=== PATIENT | male | born 1995 | race African-American/Black ===

== ENCOUNTER 2017-01-16 19:06 | Emergency (ER) | payer BC, OTHER ==
[2017-01-16] MEDS ORDERED: DIPHENHYDRAMINE HCL 50 MG CAPSULE PO ONE (19:58)
--- NOTE | 2017-01-16 19:58 | ER Document Report ---
ED General - General TRAVEL OUTSIDE OF THE [place] 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 Patient states that he developed a headache after washing dishes during the lunch shift. He went home and took Advil and then went back to work for the dinner shift. While working he developed rhinorrhea, sore throat, and nausea. Patient left work early to come to the ED to be evaluated. Patient states that he develops similar symptoms when smelling peanuts. Patient denies any rash, vomiting, or diarrhea. (BLANCA COPELAND) - Related Data Allergies/Adverse Reactions: nut - unspecified Allergy (Verified 01/16/17 19:13) Past Medical History - General Information source: Patient - Social History Smoking Status: Never Smoker Chew tobacco use (# tins/day): No Frequency of alcohol use: None Drug Abuse: None Family History: Reviewed & Not Pertinent Patient has suicidal ideation: No Renal/ Medical History: Denies: Hx Peritoneal Dialysis Surgical Hx: Negative - Immunizations Hx Diphtheria, Pertussis, Tetanus Vaccination: No Review of Systems - Review of Systems Constitutional: No symptoms reported EENT: See HPI, Nose congestion, Nose discharge, Throat pain Cardiovascular: No symptoms reported Respiratory: No symptoms reported Gastrointestinal: See HPI, Nausea. denies: Diarrhea, Vomiting Genitourinary: No symptoms reported Male Genitourinary: No symptoms reported Musculoskeletal: No symptoms reported Skin: No symptoms reported. denies: Rash Hematologic/Lymphatic: No symptoms reported Neurological/Psychological: See HPI, Headaches -: Yes All other systems reviewed and negative Physical Exam - General General appearance: Alert In distress: None - HEENT Head: Normocephalic, Atraumatic Eyes: Normal Extraocular movements intact: Yes Pupils: PERRL Ears: Normal External canal: Normal Tympanic membrane: Bulging - left, Injected - left, Other - clear fluid behind left TM. No: Normal Nasal: Clear rhinorrhea - left nostril. No: Normal - Respiratory Respiratory status: No respiratory distress Breath sounds: Normal - Cardiovascular Rhythm: Regular Heart sounds: Normal auscultation Murmur: No Friction rub: No Gallop: None auscultated - Abdominal Inspection: Normal Bowel sounds: Normal Tenderness: Nontender - Extremities General upper extremity: Normal inspection, Normal ROM General lower extremity: Normal inspection, Normal ROM, Normal weight bearing - Neurological Neuro grossly intact: Yes Cognition: Normal Orientation: AAOx4 Cubero Coma Scale Eye Opening: Spontaneous Jarvis Coma Scale Verbal: Oriented Jarvis Coma Scale Motor: Obeys Commands Cubero Coma Scale Total: 15 Speech: Normal - Psychological Associated symptoms: Normal affect, Normal mood - Skin Skin Temperature: Warm Skin Moisture: Dry Skin Color: Normal Skin irregularity: other - no evidence of hives. negative: Rash - Vital signs Vitals: Temp Pulse Resp BP Pulse Ox 100.2 F 88 16 155/68 H 100 01/16/17 20:40 01/16/17 20:40 01/16/17 20:40 01/16/17 20:40 01/16/17 20:40 Course - Re-evaluation Re-evalutation: 01/16/17 19:58 No evidence of allergic reaction, given the fever and the left-sided rhinorrhea and the serous otitis media I suspect that this patient actually has a viral upper respiratory infection. Patient will be treated with Benadryl as a decongestant, advised to use acetaminophen and ibuprofen for fever and stay off work for 24 hours, return for new or concerning symptoms. (MICHELLE HAAS) - Vital Signs Vital signs: Temp Pulse Resp BP Pulse Ox 100.2 F 88 16 155/68 H 100 01/16/17 20:40 01/16/17 20:40 01/16/17 20:40 01/16/17 20:40 01/16/17 20:40 Discharge - Discharge Clinical Impression: Viral upper respiratory tract infection Hypertension Qualifiers: Hypertension type: essential hypertension Qualified Code(s): I10 - Essential ( primary) hypertension Condition: Stable Disposition: HOME, SELF-CARE Additional Instructions: Upper Respiratory Illness You have a viral infection of the respiratory passages -- a "cold." This common infection causes nasal congestion, drainage, and often sore throat and cough. It is caused by a virus and is highly contagious. The disease usually lasts a week or more, though the worst symptoms are usually over in 3 or 4 days. There is no "cure" for the viral infection -- it must run its course. If there is a complication, such as bacterial infection in the nose, sinuses, middle ear, or bronchial tubes, antibiotics may be required, but antibiotics won 't affect the virus. If you smoke, you should STOP!! Drink plenty of fluids. A humidifier may help. An expectorant medication or decongestant may make you more comfortable. Use acetaminophen or ibuprofen for fever or aches. See the doctor if fever persists over two or three days, if there is any significant worsening of your symptoms, or if you simply fail to improve as expected. Please use ibuprofen (Motrin or Advil) 600-800 mg every 8 hours as needed for pain or fever. You may also use acetaminophen (Tylenol) 1000 mg every 4-6 hours as needed for pain or fever. Please be aware that many medications contain acetaminophen, do not exceed a total of 1000 mg of acetaminophen every 6 hours. Please use nasal saline rinses such as a NetiPot or NeilMed Sinus Rinses. For your history of nut allergy please consider skin testing to prove exactly what nuts you are allergic to. Forms: Return to Work Scribe Attestation: 01/16/17 21:47 I personally performed the services described in the documentation, reviewed and edited the documentation which was dictated to the scribe in my presence, and it accurately records my words and actions. (MICHELLE HAAS) Scribe Documentation - Scribe Written by Jessica:: Jessica Tariq, 01/16/2017 [id number] acting as scribe for :: Hiram
[2017-01-16 20:48] VITALS: BP 155/68
== END 2017-01-16 20:40 | disposition home or self-care (01) ==
LOC: ER 19:06
DX: J02.8 Acute pharyngitis due to other specified organisms (principal); B97.89 Other viral agents as the cause of diseases classified elsewhere; H65.90 Unspecified nonsuppurative otitis media, unspecified ear; J34.89 Other specified disorders of nose and nasal sinuses; R11.0 Nausea; R09.81 Nasal congestion; I10 Essential (primary) hypertension; R50.9 Fever, unspecified; Z91.018 Allergy to other foods
CPT/HCPCS: 99283